=== PATIENT | female | born 1975 | race Caucasian/White ===

== ENCOUNTER → 2017-02-04 | Outpatient (CLI) | payer BC ==
[~2017-02-04] MED LIST: AMOX1TAB15 PO; ASPI-131 PO; CIPR-151 PO; CITA40TA6 PO; SERT-88 PO
== END ==
LOC: WC.BC 14:20
PROVIDERS: ATTEND Family Medicine
DX: D48.61 Neoplasm of uncertain behavior of right breast (principal); N63 Unspecified lump in breast
CPT/HCPCS: 76642; 77062; G0204

== ENCOUNTER → 2017-02-11 | Outpatient (CLI) | payer BC | LOC: IMA 12:46 | PROVIDERS: ATTEND Family Medicine | DX: Z53.8 Procedure and treatment not carried out for other reasons (principal) ==